=== PATIENT | female | born 1935 | race Caucasian/White ===

== ENCOUNTER → 2017-08-25 | Outpatient (CLI) | payer OTHER | LOC: CFH 12:25 | PROVIDERS: ATTEND Family Medicine | DX: N64.89 Other specified disorders of breast (principal) | CPT/HCPCS: 77065 ==

== ENCOUNTER 2018-10-21 15:34 | Emergency (ER) | payer MEDICARE ==
[~2018-10-21] VITALS: Ht 144.8 cm; Wt 53.5 kg
[2018-10-21 15:39] VITALS: BP 187/100
[2018-10-21] MEDS ORDERED: LIDOCAINE-MPF 1%, 5ML ONE (16:27)
[2018-10-21] MEDS ORDERED: ACETAMINOPHEN 325 MG TABLET ONE (16:27)
[2018-10-21] MEDS ORDERED: DIPH,PERTUSS(ACELL),TET VAC/PF 0.5 ML IM-VACC ONE ×2 (16:27→16:30)
[2018-10-21] MEDS ORDERED: ACETAMINOPHEN 325 MG TABLET PO ONE (16:30)
[2018-10-21] MEDS ORDERED: LIDOCAINE 1%, 10ML INFIL ONE (16:30)
[2018-10-21] MEDS ORDERED: BACITRACIN ZINC OINT 500U/GM, 0.9 GM ONE (17:09)
== END 2018-10-21 18:10 | disposition home or self-care (01) ==
LOC: ED 18:08
DX: S01.81XA Laceration without foreign body of other part of head, initial encounter (principal); G89.11 Acute pain due to trauma; M25.522 Pain in left elbow; E78.00 Pure hypercholesterolemia, unspecified; I10 Essential (primary) hypertension; Z88.0 Allergy status to penicillin; Z87.891 Personal history of nicotine dependence; W01.0XXA Fall on same level from slipping, tripping and stumbling without subsequent striking against object, initial encounter; Y93.89 Activity, other specified; Y92.89 Other specified places as the place of occurrence of the external cause; Y99.8 Other external cause status
CPT/HCPCS: 12052; 70450; 70486; 90471; 90715

== ENCOUNTER 2018-10-28 08:14 | Emergency (ER) | payer MEDICARE ==
[~2018-10-28] VITALS: Ht 144.8 cm; Wt 53.8 kg
[2018-10-28 08:20] VITALS: BP 158/67
== END 2018-10-28 08:35 | disposition home or self-care (01) ==
LOC: ED 08:20
DX: S01.412D Laceration without foreign body of left cheek and temporomandibular area, subsequent encounter (principal); X58.XXXD Exposure to other specified factors, subsequent encounter
CPT/HCPCS: 99281

== ENCOUNTER 2019-11-09 09:47 | Emergency (ER) | payer MEDICARE, OTHER ==
[~2019-11-09] VITALS: Ht 144.8 cm; Wt 53.0 kg
[2019-11-09 09:52] VITALS: BP 145/74
--- NOTE | 2019-11-09 11:23 | NUR ---
PT DISCHARGED HOME IN A STABLE CONDITION. DC INSTRUCTIONS WERE DISCUSSED WITH PATIENT. PT VERBALIZED UNDERSTANDING. NO FURTHER QUESTIONS OR CONCERNS WERE EXPRESSED AT THAT TIME. PT AMBULATED WITH RN TO DC DESK. STEADY GAIT.
== END 2019-11-09 11:25 | disposition home or self-care (01) ==
LOC: ED 10:37
DX: S09.8XXA Other specified injuries of head, initial encounter (principal); I10 Essential (primary) hypertension; E11.9 Type 2 diabetes mellitus without complications; X58.XXXA Exposure to other specified factors, initial encounter; Y93.89 Activity, other specified; Y92.098 Other place in other non-institutional residence as the place of occurrence of the external cause; Y99.8 Other external cause status
CPT/HCPCS: 70450; 99284

== ENCOUNTER 2020-08-02 10:19 | Emergency (ER) | payer MEDICARE ==
[~2020-08-02] VITALS: Ht 160 cm; Wt 50.3 kg
[2020-08-02 10:28] VITALS: BP 143/64
== END 2020-08-02 10:45 | disposition home or self-care (01) ==
LOC: ED 10:35
DX: S01.312D Laceration without foreign body of left ear, subsequent encounter (principal); E11.9 Type 2 diabetes mellitus without complications; I10 Essential (primary) hypertension; E78.00 Pure hypercholesterolemia, unspecified; X58.XXXD Exposure to other specified factors, subsequent encounter
CPT/HCPCS: 99281

== ENCOUNTER 2020-08-02 21:11 | Emergency (ER) | payer MEDICARE | END 2020-08-02 21:52 | disposition left against medical advice (07) | LOC: ED 21:41 | DX: Z48.02 Encounter for removal of sutures (principal); Z53.21 Procedure and treatment not carried out due to patient leaving prior to being seen by health care provider ==

== ENCOUNTER 2020-11-22 19:16 | Emergency (ER) | payer MEDICARE ==
[~2020-11-22] VITALS: Ht 144.8 cm; Wt 49.9 kg
--- NOTE | 2020-11-22 19:44 | NUR ---
THIS IS A 85 YR OLD FEMALE COMING FROM HOME TODAY VIA EMS. PER PT SHE WAS SPEAKING ON THE PHONE AND HAPPEN TO CHOKE ON A PEAR. PT STATES THE PEAR EVENTUALLY CLEARED AND SINCE THAT POINT HAS BEEN DEALING WITH WHAT SHE DESCRIBES WAVES OF DIZZINESS AND NAUSEA. PT WAS GIVEN 4 MG OF ZOFRAN BY EMS WITH POSITIVE RELIEF OF SYMPTOMS. PT HX OF HTN, HLPD, AND PREDIABETIC. RECENT A1C BUT DOES NOT KNOW THE RESULTS. PT PLACED IN BED AND ON NIBP AND O2 MONITORING. PT HAS INTERMITENT SPELLS WHERE HER O2 SATURATION WILL DROP TO LOW 82% PROVIDER MADE AWARE AND PT PLACED ON 2LPM O2 VIA NC
--- NOTE | 2020-11-22 20:20 | NUR ---
RECEIVED REPORT FROM CAMILO PRINCE. PT RESTING ON FRANCES. NADN. JAMSE.
--- NOTE | 2020-11-22 21:05 | NUR ---
REPORT GIVEN TO ROSALINA MANUEL RN.
[2020-11-22 21:14] LABS: BASOPHILS % (AUTO) 1 % (0-1); EOSINOPHILS % (AUTO) 0 % (1-7); LYMPHOCYTES % (AUTO) 11 % (22-44); MEAN CORPUSCULAR HEMOGLOBIN 28.7 pg (27.0-34.8); MEAN PLATELET VOLUME 8.4 fL (7.4-10.4); MONOCYTES % (AUTO) 5 % (2-9); NEUTROPHILS % (AUTO) 83 % (42-75); PLATELET COUNT 319 x10^3/uL (130-400); RED BLOOD COUNT 3.83 x10^6/uL (3.82-5.3); RED CELL DISTRIBUTION WIDTH 14.1 % (9.6-15.2)
[2020-11-22 21:23] LABS: MD NO
[2020-11-22] MEDS ORDERED: ONDANSETRON 2MG/ML, 2ML IVPush ONE (21:30)
[2020-11-22 21:31] LABS: ALANINE AMINOTRANSFERASE 51 U/L (12-78); ALBUMIN 3.8 g/dL (3.4-5.0); ANION GAP 6 mmol/L (5-15); CALCIUM 9.9 mg/dL (8.5-10.1); CHLORIDE 100 mmol/L (98-107)
[2020-11-22 21:33] LABS: ALKALINE PHOSPHATASE 84 U/L (45-117); BILIRUBIN,TOTAL 0.3 mg/dL (0.2-1.0)
[2020-11-22 21:45] LABS: TROPONIN I < 0.015 ng/mL (0.000-0.045)
[2020-11-22] MEDS ORDERED: ONDANSETRON 2MG/ML, 2ML ONE (21:45)
--- NOTE | 2020-11-22 21:59 | NUR ---
PT TO CT AGAIN FOR CHEST CT.
[2020-11-22 22:03] LABS: MICROSCOPIC NOT IND
[2020-11-22 22:17] VITALS: BP 125/77
== END 2020-11-23 00:12 | disposition home or self-care (01) ==
LOC: ED 11-23 00:01
DX: R42 Dizziness and giddiness (principal); R11.0 Nausea; F17.210 Nicotine dependence, cigarettes, uncomplicated; I10 Essential (primary) hypertension; Z90.710 Acquired absence of both cervix and uterus; Z90.89 Acquired absence of other organs
CPT/HCPCS: 36415; 70450; 71045; 71250; 80053; 81003; 84484; 85025; 93005; 96374; 99285; J2405